=== PATIENT | female | born 1950 | race Caucasian/White ===

== ENCOUNTER → 2016-07-25 | Outpatient (CLI) | payer MEDICARE, OTHER ==
[~2016-07-25] MED LIST: CALC1CAP8 PO; CETI-158 PO; LEVO50TA5 PO; METO25TA35 PO; OMEP-110 PO
== END | disposition home or self-care (01) ==
LOC: STAR 09:21
PROVIDERS: ATTEND Colon & Rectal Surgery
DX: Z02.9 Encounter for administrative examinations, unspecified (principal)

== ENCOUNTER 2016-07-28 08:59 | Inpatient (IN) | payer MEDICARE, OTHER ==
[~2016-07-28] VITALS: Ht 167.6 cm; Wt 82.1 kg
[~2016-07-28 08:59] MED LIST changes: +BUPIVACAINE/PF-EPI 0.25% 1:200K ONE
[2016-07-28] MEDS ORDERED: LACTATED RINGERS 1,000 ML IV SCH (09:25)
[2016-07-28 09:28] VITALS: BP 117/76
[2016-07-28] MEDS ORDERED: MIDAZOLAM 1 MG/ML, 2ML ONE (09:54)
[2016-07-28] MEDS ORDERED: FENTANYL PF 250 MCG/5ML ONE (09:55)
[2016-07-28] MEDS ORDERED: SCOPOLAMINE PATCH, 1.5MG PATCH.TD72 TD ONE ×2 (10:38→10:45)
[2016-07-28] MEDS ORDERED: PROPOFOL 10 MG/ML, 20ML ONE (10:45)
[2016-07-28] MEDS ORDERED: NEOSTIGMINE 1 MG/ML, 10ML ONE (10:45)
[2016-07-28] MEDS ORDERED: PHENYLEPHRINE 10 MG/ML ONE (10:45)
[2016-07-28] MEDS ORDERED: EPHEDRINE 50 MG/ML, 1ML ONE (10:45)
[2016-07-28] MEDS ORDERED: ONDANSETRON 2MG/ML, 2ML ONE (10:45)
[2016-07-28] MEDS ORDERED: GLYCOPYRROLATE 0.2MG/1ML ONE (10:45)
[2016-07-28] MEDS ORDERED: CEFOTETAN 2 GM ONE (10:45)
[2016-07-28] MEDS ORDERED: DEXAMETHASONE 4 MG/ML, 1ML ONE (10:45)
[2016-07-28] MEDS ORDERED: ROCURONIUM 10 MG/ML ONE (10:45)
[2016-07-28] MEDS ORDERED: FENTANYL PF 100 MCG/2ML IV PRN (11:30)
[2016-07-28] MEDS ORDERED: MIDAZOLAM 1 MG/ML, 2ML IV PRN (11:30)
[2016-07-28] MEDS ORDERED: PROMETHAZINE 25 MG/ML, 1ML IV PRN (11:30)
[2016-07-28] MEDS ORDERED: OXYcodone 5 MG/5 ML ORAL.SOL UDC PO PRN (11:30)
[2016-07-28] MEDS ORDERED: ALBUTEROL/IPRATROPIUM 2.5MG/0.5MG, 3 ML NPPB PRN (11:30)
[2016-07-28] MEDS ORDERED: MEPERIDINE/PF 25MG/0.5ML IVPush PRN (11:30)
[2016-07-28] MEDS ORDERED: ONDANSETRON 2MG/ML, 2ML IVPush PRN (11:30)
[2016-07-28] MEDS ORDERED: hydrALAzine 20 MG/ML, 1ML IV PRN (11:30)
[2016-07-28] MEDS ORDERED: LABETALOL 5MG/ML, 20ML IV PRN (11:30)
[2016-07-28] MEDS ORDERED: THROMBIN 5,000 UNIT VIAL TP ONE ×2 (11:53→11:55)
[2016-07-28] MEDS: HYDROmorphone 1 MG/ML, 1ML IV PRN ×3 (12:20→13:32)
[2016-07-28] MEDS ORDERED: HYDROmorphone 2 MG/ML, 1ML ONE (12:29)
[2016-07-28] MEDS ORDERED: FENTANYL PF 100 MCG/2ML ONE (12:29)
[2016-07-28] MEDS ORDERED: OXYcodone 5 MG/5 ML ORAL.SOL UDC ONE (12:30)
[2016-07-28 13:49] VITALS: BP 112/70
[2016-07-28] MEDS ORDERED: morphine SULFATE 10 MG/ML, 1ML IV PRN (14:30)
[2016-07-28] MEDS ORDERED: DIPHENHYDRAMINE 25 MG CAPSULE PO PRN (14:30)
[2016-07-28] MEDS ORDERED: KETOROLAC 30 MG/1 ML IV PRN (14:30)
[2016-07-28] MEDS ORDERED: DIPHENHYDRAMINE 50 MG/ML, 1ML IV PRN (14:30)
[2016-07-28] MEDS ORDERED: ONDANSETRON 2MG/ML, 2ML IV PRN (14:30)
[2016-07-28] MEDS: CEFOTETAN PMX 1GM/50ML 50 ML IVPB SCH (14:41)
[2016-07-28] MEDS: POTASSIUM CHLORIDE 20 MEQ in SODIUM CHLORIDE 0.9% 1,000 ML IV SCH (14:41)
[2016-07-28] MEDS: OXYcodone/APAP 5/325MG TABLET PO PRN ×2 (17:02→21:18)
[2016-07-28 20:22] VITALS: BP 110/75
[2016-07-29 00:19] VITALS: BP 104/65
[2016-07-29] MEDS: OXYcodone/APAP 5/325MG TABLET PO PRN ×5 (02:18→22:52)
[2016-07-29] MEDS: CEFOTETAN PMX 1GM/50ML 50 ML IVPB SCH (02:18)
[2016-07-29 05:11] VITALS: BP 103/65
[2016-07-29 05:37] LABS: BLOOD UREA NITROGEN 9 mg/dL (7-18)
[2016-07-29 07:45] VITALS: BP 97/63
[2016-07-29] MEDS: ENOXAPARIN 40 MG/0.4 ML SQ SCH (09:38)
[2016-07-29] MEDS: POTASSIUM CHLORIDE 20 MEQ in SODIUM CHLORIDE 0.9% 1,000 ML IV SCH (10:42)
[2016-07-29 15:25] VITALS: BP 97/61
[2016-07-29 19:50] VITALS: BP 101/62
[2016-07-30 01:41] VITALS: BP 108/67
[2016-07-30] MEDS: POTASSIUM CHLORIDE 20 MEQ in SODIUM CHLORIDE 0.9% 1,000 ML IV SCH (02:29)
[2016-07-30] MEDS: OXYcodone/APAP 5/325MG TABLET PO PRN ×2 (02:43→10:20)
[2016-07-30 05:09] LABS: BLOOD UREA NITROGEN 15 mg/dL (7-18)
[2016-07-30 07:02] VITALS: BP 105/64
[2016-07-30] MEDS ORDERED: ENOX30SY4 SC (10:19)
[2016-07-30] MEDS ORDERED: OXYC-302 PO (10:19)
[2016-07-30] MEDS: ENOXAPARIN 40 MG/0.4 ML SQ SCH (10:20)
== END 2016-07-30 12:09 | disposition home or self-care (01) | DRG 330 ==
LOC: ORIP 08:59 → 4NOR 13:40
PROVIDERS: ADMIT Colon & Rectal Surgery; ATTEND Colon & Rectal Surgery
PROC: 0DTF4ZZ Resection of Right Large Intestine, Percutaneous Endoscopic Approach (ICD-10-PCS; principal; 2016-07-28 11:00)
DX: D12.0 Benign neoplasm of cecum (principal); D68.51 Activated protein C resistance; I10 Essential (primary) hypertension; K21.9 Gastro-esophageal reflux disease without esophagitis; E03.9 Hypothyroidism, unspecified; Z88.8 Allergy status to other drugs, medicaments and biological substances; Z88.0 Allergy status to penicillin; Z90.49 Acquired absence of other specified parts of digestive tract
CPT/HCPCS: 36415; 80048; 82040; 83735; 85025; 86850; 86900; 88307; J1100; J1170; J1650; J2250; J2405; J2704; J2710; J3010; J3480; J3490; J2370; J7030; J7120; S0074

== ENCOUNTER → 2020-02-21 | Outpatient (CLI) | payer OTHER ==
[~2020-02-21] MED LIST changes: -BUPIVACAINE/PF-EPI 0.25% 1:200K ONE; +ENOX30SY4 SC; +OXYC-302 PO
== END | disposition home or self-care (01) ==
LOC: CFH 10:15
PROVIDERS: ATTEND Internal Medicine
DX: Z12.31 Encounter for screening mammogram for malignant neoplasm of breast (principal); Z13.820 Encounter for screening for osteoporosis; M85.88 Other specified disorders of bone density and structure, other site
CPT/HCPCS: 77063; 77067; 77080